=== PATIENT | female | born 1975 | race Caucasian/White ===

== ENCOUNTER → 2019-11-22 | Outpatient (CLI) | payer MEDICAID ==
[~2019-11-22] MED LIST: FERR324T5 PO; HYDR-3237 PO; LISI-170 PO; NORT25CA78 PO; VITAMIN D2 PO
[2019-11-22 12:39] LABS: CHLORIDE 108 mmol/L (98-107)
[2019-11-22 12:57] LABS: ALANINE AMINOTRANSFERASE 23 U/L (12-78); ALBUMIN 3.4 g/dL (3.4-5.0); ALKALINE PHOSPHATASE 69 U/L (45-117); ANION GAP 6 mmol/L (5-15); BILIRUBIN,TOTAL 0.3 mg/dL (0.2-1.0); CALCIUM 8.4 mg/dL (8.5-10.1); CREATININE 0.82 mg/dL (0.55-1.02)
== END | disposition home or self-care (01) ==
LOC: STAR 10:58
PROVIDERS: ATTEND Podiatrist Foot & Ankle Surgery
DX: Z01.818 Encounter for other preprocedural examination (principal); Z11.59 Encounter for screening for other viral diseases; T85.840A Pain due to nervous system prosthetic devices, implants and grafts, initial encounter
CPT/HCPCS: 36415; 80053; 87635

== ENCOUNTER 2019-11-26 10:31 | Day surgery (SDC) | payer MEDICAID ==
[~2019-11-26] VITALS: Ht 177.8 cm; Wt 160.0 kg
[~2019-11-26 10:31] MED LIST changes: +BUPIVACAINE/PF-EPI 0.5% 1:200K ONE
[2019-11-26] MEDS ORDERED: CHLORHEXIDINE 15 ML UDC MM ONE (11:00)
[2019-11-26 11:01] VITALS: BP 128/84
[2019-11-26 11:14] LABS: HCG UR SG 1.024 (1.003-1.030)
[2019-11-26] MEDS ORDERED: LACTATED RINGERS 1,000 ML IV SCH (11:22)
[2019-11-26] MEDS ORDERED: FENTANYL PF 100 MCG/2ML ONE ×3 (12:21→15:12)
[2019-11-26] MEDS ORDERED: MIDAZOLAM 1 MG/ML, 2ML ONE (12:21)
[2019-11-26] MEDS ORDERED: PROPOFOL 10 MG/ML, 20ML ONE (13:50)
[2019-11-26] MEDS ORDERED: CEFAZOLIN 1,000 MG ONE (13:50)
[2019-11-26] MEDS ORDERED: ONDANSETRON 2MG/ML, 2ML ONE (13:50)
[2019-11-26] MEDS ORDERED: BUPIVACAINE/PF 0.5% ONE ×2 (13:50)
[2019-11-26] MEDS ORDERED: DEXAMETHASONE 4 MG/ML, 1ML ONE (13:50)
[2019-11-26] MEDS ORDERED: PROMETHAZINE 25 MG/ML, 1ML IVPush PRN (14:30)
[2019-11-26] MEDS ORDERED: HYDROmorphone 1 MG/ML, 1ML INJ IVPush PRN (14:30)
[2019-11-26] MEDS ORDERED: ACETAMINOPHEN 325 MG TABLET PO PRN (14:30)
[2019-11-26] MEDS ORDERED: MEPERIDINE/PF 25MG/0.5ML IVPush PRN (14:30)
[2019-11-26] MEDS ORDERED: OXYcodone 5 MG/5 ML ORAL.SOL UDC PO PRN (14:30)
[2019-11-26] MEDS ORDERED: hydrALAzine 20 MG/ML, 1ML IV PRN (14:30)
[2019-11-26] MEDS ORDERED: LORazepam 2 MG/ML, 1ML IVPush PRN (14:30)
[2019-11-26] MEDS ORDERED: LABETALOL 5MG/ML, 20ML IV PRN (14:30)
[2019-11-26] MEDS ORDERED: ALBUTEROL SULFATE 2.5 MG/3 ML NPPB PRN (14:30)
[2019-11-26] MEDS: FENTANYL PF 100 MCG/2ML IV PRN ×2 (15:15→15:21)
[2019-11-26] MEDS ORDERED: ACETAMINOPHEN 650 MG/20.3 ML UDC ONE (15:19)
[2019-11-26] MEDS ORDERED: OXYcodone 5 MG/5 ML ORAL.SOL UDC ONE (15:20)
== END 2019-11-26 16:55 | disposition home or self-care (01) ==
LOC: OUT 10:31
PROVIDERS: ATTEND Podiatrist Foot & Ankle Surgery
DX: T84.84XA Pain due to internal orthopedic prosthetic devices, implants and grafts, initial encounter (principal); Y82.8 Other medical devices associated with adverse incidents; S92.351K Displaced fracture of fifth metatarsal bone, right foot, subsequent encounter for fracture with nonunion; X58.XXXD Exposure to other specified factors, subsequent encounter; M96.0 Pseudarthrosis after fusion or arthrodesis; M21.611 Bunion of right foot; I10 Essential (primary) hypertension; Z79.899 Other long term (current) drug therapy; Z98.890 Other specified postprocedural states
CPT/HCPCS: 20680; 27306; 27659; 28297; 64445; 64447; 73620; 76000; 81025; C1713; J0690; J1100; J2250; J2405; J2704; J3010; J7120